=== PATIENT | female | born 1970 | race Caucasian/White ===

== ENCOUNTER 2021-05-17 14:31 | Outpatient (CLI) | payer BC | END 2021-05-17 14:32 | disposition home or self-care (01) | LOC: CSHMAMMO 14:31 | PROVIDERS: ATTEND Family Medicine | DX: Z12.31 Encounter for screening mammogram for malignant neoplasm of breast (principal) | CPT/HCPCS: 77063; 77067 ==

== ENCOUNTER 2022-08-02 14:16 | Outpatient (CLI) | payer OTHER | END 2022-08-02 14:17 | disposition home or self-care (01) | LOC: CSHMAMMO 14:16 | PROVIDERS: ATTEND Family Medicine | DX: Z12.31 Encounter for screening mammogram for malignant neoplasm of breast (principal) | CPT/HCPCS: 77063; 77067 ==

== ENCOUNTER 2024-07-28 12:43 | Outpatient (CLI) | payer OTHER | END 2024-07-28 12:44 | disposition home or self-care (01) | LOC: CSHMAMMO 12:43 | PROVIDERS: ATTEND Family Medicine | DX: Z12.31 Encounter for screening mammogram for malignant neoplasm of breast (principal) | CPT/HCPCS: 77063; 77067 ==

== ENCOUNTER 2024-08-18 08:48 | Outpatient (CLI) | payer OTHER | END 2024-08-18 08:49 | disposition home or self-care (01) | LOC: CSHSLEEP 08:48 | PROVIDERS: ATTEND Family Medicine | DX: G47.33 Obstructive sleep apnea (adult) (pediatric) (principal); E66.9 Obesity, unspecified; Z68.41 Body mass index [BMI] 40.0-44.9, adult; R06.83 Snoring | CPT/HCPCS: 95800 ==